=== PATIENT | male | born 1940 | race Caucasian/White ===

== ENCOUNTER 2018-08-03 17:09 | Emergency (ER) | payer OTHER ==
[2018-08-03 17:18] VITALS: BMI 24.9
--- NOTE | 2018-08-03 17:23 | PDOC ---
History of Present Illness - General Chief Complaint: Cold Symptoms Stated Complaint: COUGH Time Seen by Provider: 08/03/18 17:22 History Source: Patient Exam Limitations: No Limitations Past History - Travel Traveled outside of the country in the last 30 days: No Close contact w/someone who was outside of country & ill: No - Past Medical History Allergies/Adverse Reactions: Allergies Allergy/AdvReac Type Severity Reaction Status Date / Time No Known Allergies Allergy Verified 08/03/18 17:13 Home Medications: Ambulatory Orders Azithromycin 250 mg PO DAILY 4 Days #4 tablet 08/03/18 Cardiac Disorders: Yes (PACEMAKER) COPD: No - Surgical History Cardiac Surgery: Yes (PACEMAKER) - Suicide/Smoking/Psychosocial Hx Smoking History: Never smoked Hx Alcohol Use: No Drug/Substance Use Hx: No Review of Systems - Review of Systems Able to Perform ROS?: Yes Is the patient limited [place] proficient: No Constitutional: Yes: Weight Stable. No: Chills, Diaphoresis, Fever, Loss of Appetite, Night Sweats, Weakness HEENTM: Yes: Throat Pain. No: Blurred Vision, Double Vision, Nose Pain, Nose Congestion, Throat Swelling, Difficulty Swallowing Respiratory: Yes: Cough, Shortness of Breath (SOB with coughing), Productive cough (clear sputum). No: Orthopnea, SOB with Exertion, SOB at Rest, Wheezing, Hemoptysis Cardiac (ROS): Yes: Lightheadedness (vertigo and light-headed after vomiting). No: Chest Pain, Edema, Irregular Heart Rate, Palpitations, Syncope, Chest Tightness ABD/GI: Yes: Diarrhea, Nausea, Vomiting. No: Constipated, Poor Appetite, Poor Fluid Intake, Abdominal cramping : No: Burning, Dysuria, Pain, Urgency Musculoskeletal: No: Back Pain, Joint Pain, Muscle Weakness Integumentary: No: Rash Neurological: Yes: Dizziness. No: Headache, Numbness, Weakness, Unsteady Gait Psychiatric: No: Sleep Pattern Change, Change in Appetite Endocrine: No: Increased Urine, Change in Weight Hematologic/Lymphatic: No: Anemia, Blood Clots, Easy Bleeding, Easy Bruising All Other Systems: Reviewed and Negative *Physical Exam - Vital Signs Last Vital Signs Temp Pulse Resp BP Pulse Ox 97.5 F L 77 20 153/88 96 08/03/18 17:12 08/03/18 17:12 08/03/18 17:12 08/03/18 17:12 08/03/18 17:12 - Physical Exam Comments: HTN 153/88, HR 77, 96% on RA, pt afebrile. Pt appears uncomfortable, active nausea/vomiting of clear sputum with coughing. Normal body habitus. Pt alert and oriented x3. steamfitter generally intact, muscular strength and sensation intact. No midline spinal tenderness, step-offs, or crepitus. Head normocephalic, atraumatic. Eyes PERRLA, EOMI. Oropharynx without erythema or exudates, no LAD b/l. No nasal congestion, hearing intact. Clear heart sounds, S1/S2, no JVD, b/l pedal edema, or heart murmur. 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 Diminished lung sounds over b/l posterior bases. No wheezes, crackles, or accessory muscle use. No abdominal or CVA tenderness to palpation, no rebound, no guarding. Abdomen soft, non-distended, and with normoactive bowel sounds. Skin without jaundice or rash. 08/03/18 17:36 08/03/18 18:27 Repeat lung exam after nebulizer treatment: Coarse breath sounds present over posterior b/l bases. Pt moving better air b/ l. 08/03/18 18:39 ED Treatment Course - LABORATORY CBC & Chemistry Diagram: 08/03/18 17:30 08/03/18 17:30 Medical Decision Making - Medical Decision Making Pt was seen at bedside, also will be seen by attending Dr. Sam. Pt presenting with Considering [vs vs] Ordered work-up including CBC, CMP, cardiac profile, ECG, chest x-ray. Provided 1 g ofirmev and 4 mg IV zofran for improvement of discomfort and vomiting. Will continue to reassess pt and monitor for symptomatic improvement. ECG: Atrial-sensed ventricular-paced rhythm, intervals WNL HR 76, FL 176, QRS 172, QTc 497). No TWIs or significant ST segment changes. No prior for comparison. 08/03/18 17:33 Pt continues to saturate in low 90s before coughing up sputum. Providing additional 2 amp albuterol nebs and 10 mg IV decadron. Providing 500 mg PO azithromycin. Sent additional abx to pt pharmacy. Pt signed out to night attending. 08/03/18 19:08
[2018-08-03] MEDS ORDERED: ONDANSETRON 4 MG/2 ML VIAL IVPUSH ONE (17:27)
[2018-08-03] MEDS ORDERED: ACETAMINOPHEN 1000 MG/100 ML VIAL (NON FORMULARY) IVPB ONE (17:27)
--- NOTE | 2018-08-03 17:34 | PDOC ---
Attending Attestation - Resident Resident Name: Marlin Koo - ED Attending Attestation I have performed the following: I have examined & evaluated the patient, The case was reviewed & discussed with the resident, I agree w/resident's findings & plan, Exceptions are as noted
[2018-08-03] MEDS ORDERED: ONDANSETRON 4 MG/2 ML VIAL ONE (17:38)
[2018-08-03] MEDS ORDERED: ACETAMINOPHEN INJECTION 100 ML IVPB ONE (17:38)
[2018-08-03] MEDS ORDERED: ALBUTEROL SO4 0.083% IH SOL 2.5 MG/3 ML VIAL.NEB. NEB ONE ×5 (17:51→18:58)
[2018-08-03 17:54] LABS: BASO % 0.4 % (0-2.0); EOS % 1.4 % (0-4.5); HEMATOCRIT 37.5 % (35.4-49); HEMOGLOBIN 12.5 GM/dl (11.7-16.9); LYMPH % 13.2 % (8-40); MCH 31.6 pg (25.7-33.7); MCHC 33.4 g/dl (32.0-35.9); MEAN CELL VOLUME 94.4 fl (80-96); MEAN PLT VOLUME 7.5 fl (7.5-11.1); MONO % 5.5 % (3.8-10.2); NEUT % 79.5 % (42.8-82.8); PLATELET COUNT 185 K/MM3 (134-434); RBC 3.97 M/mm3 (4.00-5.60); RDW 13.2 % (11.9-15.9); WHITE BLOOD COUNT 7.5 K/mm3 (4.0-10.8)
[2018-08-03 18:08] LABS: ALBUMIN 3.9 g/dl (3.4-5.0); ALK PHOS 79 U/L (45-117); ANION GAP 9 MMOL/L (8-16); BILIRUBIN,TOTAL 0.7 mg/dl (0.2-1); BLOOD UREA NITROGEN 13 mg/dl (7-18); CALCIUM 8.6 mg/dl (8.5-10); CHLORIDE 103 mmol/L (98-107); CO2 25 mmol/L (21-32); GLUCOSE,RANDOM 130 mg/dl (74-106); POTASSIUM 4.2 mmol/L (3.5-5.1); SGOT/AST 15 U/L (15-37); SGPT/ALT 10 U/L (13-61); SODIUM 137 mmol/L (136-145); TOT PROT 6.5 g/dl (6.4-8.2)
[2018-08-03] MEDS ORDERED: DEXAMETHASONE SOD PHOSPHATE 10 MG/1 ML VIAL IVPUSH ONE (18:47)
[2018-08-03] MEDS ORDERED: DEXAMETHASONE SOD PHOSPHATE 10 MG/1 ML VIAL ONE (18:59)
[2018-08-03] MEDS ORDERED: AZITHROMYCIN 500 MG TABLET PO ONE (19:03)
--- NOTE | 2018-08-03 19:22 | PDOC ---
*Physical Exam - Vital Signs Last Vital Signs Temp Pulse Resp BP Pulse Ox 97.5 F L 73 19 124/63 91 L 08/03/18 17:12 08/03/18 17:50 08/03/18 17:50 08/03/18 17:50 08/03/18 17:50 ED Treatment Course - LABORATORY CBC & Chemistry Diagram: 08/03/18 17:30 08/03/18 17:30 - ADDITIONAL ORDERS Additional order review: Laboratory Results 08/03/18 08/03/18 08/03/18 17:30 17:30 17:30 Sodium 137 Potassium 4.2 Chloride 103 Carbon Dioxide 25 Anion Gap 9 BUN 13 Creatinine 1.0 Creat Clearance w eGFR 72.27 Random Glucose 130 H Calcium 8.6 Total Bilirubin 0.7 AST 15 ALT 10 L Alkaline Phosphatase 79 Creatine Kinase 49 Troponin I < 0.03 Total Protein 6.5 Albumin 3.9 08/03/18 17:30 RBC 3.97 L MCV 94.4 MCHC 33.4 RDW 13.2 MPV 7.5 Neutrophils % 79.5 Lymphocytes % 13.2 Monocytes % 5.5 Eosinophils % 1.4 Basophils % 0.4 - Medications Given in the ED: ED Medications Discontinued Medications Generic Name Dose Route Start Last Admin Trade Name Freq PRN Reason Stop Dose Admin Acetaminophen 1,000 mg 08/03/18 17:27 08/03/18 17:44 Ofirmev Injection - IVPB 08/03/18 17:28 1,000 mg ONCE ONE Administration Albuterol Sulfate 2 amp 08/03/18 17:51 08/03/18 18:09 Ventolin 0.083% Nebulizer Soln - NEB 08/03/18 17:52 2 amp ONCE ONE Administration Albuterol Sulfate 2 amp 08/03/18 18:47 08/03/18 19:00 Ventolin 0.083% Nebulizer Soln - NEB 08/03/18 18:48 2 amp ONCE ONE Administration Dexamethasone Sodium Phosphate 10 mg 08/03/18 18:47 08/03/18 19:03 Decadron Injection - IVPUSH 08/03/18 18:48 10 mg ONCE ONE Administration Ondansetron HCl 4 mg 08/03/18 17:27 08/03/18 17:43 Zofran Injection IVPUSH 08/03/18 17:28 4 mg ONCE ONE Administration Progress Note - Progress Note Progress Note: Care of this patient received from . He feels significantly better after IV fluids and albuterol nebulizer treatments. Patient will be started on azithromycin course, with first dose given here in the ER (500 mg). Prescription for albuterol inhaler sent to the pharmacy. The patient is visiting from [facility]. He is scheduled to return to [facility] on August 07. It was suggested to the patient that he delay air travel for a few days afterwards scheduled date of departure (documentation of this recommendation provided for the patient). Meanwhile, patient should return to the emergency room if he has any worsening of his symptoms such as increased shortness of breath, severe cough or high fever. Patient also asked about topical treatments for muscle soreness (quadricep muscles) that developed after patient hiked extensively a few days prior to presentation. Suggestion to use [id number] ointments such as "[place] balm " given to the patient. *DC/Admit/Observation/Transfer Diagnosis at time of Disposition: Acute bronchitis Qualifiers: Bronchitis organism: unspecified organism Qualified Code(s): J20.9 - Acute bronchitis, unspecified - Discharge Dispostion Disposition: HOME - Prescriptions Prescriptions: Albuterol Sulfate Inhaler - [Ventolin HFA Inhaler -] 2 inh PO Q6H PRN #1 inh PRN Reason: Wheezing Azithromycin 250 mg PO DAILY 4 Days #4 tablet - Referrals - Patient Instructions Printed Discharge Instructions: DI for Acute Bronchitis Additional Instructions: rest, drink plenty of fluids Azithromycin 250mg daily for 4 days, next dose tomorrow Albuterol inhaler 1-2 puffs every 6 hours as needed for wheezing/shortness of breath can use "tiger balm" topical ointment on sore muscles as needed recommend delaying travel by airplane until 08/09 or after return to ER if you have persistent shortness of breath/high fever followup with your doctor SRAVANI when you return home - Post Discharge Activity
[2018-08-03] MEDS ORDERED: AZITHROMYCIN 500 MG TABLET ONE (19:51)
[2018-08-03 20:21] VITALS: BP 137/70; PULSE 76; TEMP 98.3
--- NOTE | 2018-08-04 12:16 | EKG ---
Test Reason : Blood Pressure : / mmHG Vent. Rate : 076 BPM Atrial Rate : 076 BPM P-R Int : 176 ms QRS Dur : 172 ms QT Int : 442 ms P-R-T Axes : 004 141 104 degrees QTc Int : 497 ms Atrial-sensed ventricular-paced rhythm ABNORMAL ECG NO PREVIOUS ECGS AVAILABLE Confirmed by RAEGAN FARAH MD ([id number]) on 08/04/2018 12:16:06 PM Referred By: MD MIX Confirmed By:RAEGAN FARAH MD
== END 2018-08-03 20:29 | disposition home or self-care (01) ==
LOC: FER 17:09
PROC: 3E0F7GC Introduction of Other Therapeutic Substance into Respiratory Tract, Via Natural or Artificial Opening (ICD-10-PCS; principal; 2018-08-03)
PROC: 3E033NZ Introduction of Analgesics, Hypnotics, Sedatives into Peripheral Vein, Percutaneous Approach (ICD-10-PCS; 2018-08-03)
PROC: 3E033GC Introduction of Other Therapeutic Substance into Peripheral Vein, Percutaneous Approach (ICD-10-PCS; 2018-08-03)
DX: J20.9 Acute bronchitis, unspecified (principal)
CPT/HCPCS: 36415; 71045-TC-FY; 71046-TC-FY; 80053; 82550; 84484; 85025; 87804; 93005; 94640; 96374; 96375; 99283-25; J0131; J1100